=== PATIENT | female | born 1970 | race Caucasian/White ===

== ENCOUNTER 2025-04-03 05:42 | Day surgery (SDC) | payer BC, SELFPAY ==
[2025-03-25 14:17] VITALS: BMI 34.2
[2025-04-03] VITALS (10 sets, daily range): BP systolic 100–122; BP diastolic 55–75; BMI 34.2
[2025-04-03] MEDS: NORMOSOL-R/PLASMALYTE-A 1000 IV (06:26)
[2025-04-03] MEDS: TYLENOL 1000 MG PO (06:26)
[2025-04-03] MEDS: ROXICODONE 5 MG PO (09:07)
== END 2025-04-03 09:29 | disposition home or self-care (01) ==
LOC: SDS 05:42
PROVIDERS: ATTENDING PHYSICIAN Specialist
DX: S83.241A Other tear of medial meniscus, current injury, right knee, initial encounter (principal); X58.XXXA Exposure to other specified factors, initial encounter
CPT/HCPCS: 29881; 36415; 93005